=== PATIENT | female | born 1940 | race African-American/Black ===

== ENCOUNTER 2018-06-18 16:49 | Emergency (ER) | payer MEDICARE, OTHER ==
[~2018-06-18] VITALS: Ht 167.6 cm; Wt 70.0 kg
[~2018-06-18 16:49] MED LIST: ASPI-986 PO; CELL5 PO; CYCL100C21 PO; DOXAZOSIN MESYLATE PO; FURO40TA5 PO; METO-293 PO; METO25TA6 PO; [UNRECOGNIZED DRUG - OTHER] PO
[2018-06-18 18:00] LABS: HEMATOCRIT. 38.1 % (36.0-48.0); MEAN CORPUSCULAR HEMOGLOBIN 27.5 pg (28.0-32.0); MEAN CORPUSCULAR VOLUME 87.5 fL (81.0-99.0); PLATELET 153 x1000/uL (130-400); RED BLOOD CELL COUNT 4.35 mill/uL (4.2-5.4); RED CELL DISTRIBUTION WIDTH 14.8 % (11.6-14.6)
[2018-06-18 18:01] LABS: INR 1.1; PROTHROMBIN TIME 10.7 sec (9.1-11.1)
[2018-06-18 18:02] LABS: CHLORIDE 107 mEq/L (98-107)
[2018-06-18 18:35] LABS: PLATELET ESTIMATE NORMAL
[2018-06-18] MEDS ORDERED: SODIUM CHLORIDE 0.9% 500 ML IV ONE (20:30)
[2018-06-18] MEDS ORDERED: SODIUM CHLORIDE 0.9% 1,000 ML IV ONE (20:30)
[2018-06-18] MEDS ORDERED: ASPIRIN 325MG EC TABLET PO ONE (21:30)
[2018-06-18] MEDS ORDERED: DEXT 5%/0.9% NACL 500 ML IV ONE (21:30)
[2018-06-19 01:11] VITALS: BP 150/61
== END 2018-06-19 02:00 | disposition short-term general hospital (02) ==
LOC: ER 16:49 → CANBEDREQ 06-19 03:18
DX: E11.649 Type 2 diabetes mellitus with hypoglycemia without coma (principal); E86.0 Dehydration; E11.22 Type 2 diabetes mellitus with diabetic chronic kidney disease; I12.9 Hypertensive chronic kidney disease with stage 1 through stage 4 chronic kidney disease, or unspecified chronic kidney disease; N18.9 Chronic kidney disease, unspecified; E66.01 Morbid (severe) obesity due to excess calories; Z68.24 Body mass index [BMI] 24.0-24.9, adult; Z96.41 Presence of insulin pump (external) (internal); Z86.73 Personal history of transient ischemic attack (TIA), and cerebral infarction without residual deficits
CPT/HCPCS: 36415; 70450; 71045; 80053; 82962; 84484; 85025; 85610; 93005; 96360; 99285; J7030; J7040